=== PATIENT | male | born 1995 ===

== ENCOUNTER 2023-12-11 14:26 | Emergency (ER) | payer OTHER ==
[~2023-12-11] VITALS: Ht 170.2 cm; Wt 78.6 kg
[2023-12-11 14:41] VITALS: TEMP 98
[2023-12-11] MEDS ORDERED: CARB200T6 PO (14:43)
[2023-12-11] MEDS: IBUPROFEN 600 MG TABLET PO ONE (18:22)
[2023-12-11 19:08] VITALS: BP 114/65; PULSE 73; RESP 18
[2023-12-11] MEDS ORDERED: IBUP-1492 PO (19:14)
== END 2023-12-11 19:31 | disposition home or self-care (01) ==
LOC: EMS 14:36
DX: R07.0 Pain in throat (principal); Y08.89XA Assault by other specified means, initial encounter; Y93.89 Activity, other specified; Y92.098 Other place in other non-institutional residence as the place of occurrence of the external cause; Y99.8 Other external cause status
CPT/HCPCS: 70360; 99283